=== PATIENT | male | born 1955 | race Caucasian/White ===

== ENCOUNTER 2019-05-02 14:11 | Emergency (ER) | payer OTHER ==
[~2019-05-02] VITALS: Ht 170.2 cm; Wt 79.4 kg
[2019-05-02] MEDS ORDERED: FLEXERIL PO (17:16)
[2019-05-02] MEDS ORDERED: NAPROSYN500 MG PO (17:16)
[2019-05-02 17:40] VITALS: BP 153/70
== END 2019-05-02 17:41 | disposition home or self-care (01) ==
LOC: M.ERS 14:11
DX: S00.83XA Contusion of other part of head, initial encounter (principal); S00.411A Abrasion of right ear, initial encounter; S09.90XA Unspecified injury of head, initial encounter; F17.210 Nicotine dependence, cigarettes, uncomplicated; Z90.49 Acquired absence of other specified parts of digestive tract; Z88.0 Allergy status to penicillin; Y04.0XXA Assault by unarmed brawl or fight, initial encounter; Y93.89 Activity, other specified; Y92.098 Other place in other non-institutional residence as the place of occurrence of the external cause; Y99.8 Other external cause status